=== PATIENT | female | born 2000 | race African-American/Black ===

== ENCOUNTER 2023-11-07 09:48 | Emergency (ER) | payer SELFPAY ==
[2023-11-07 10:04] VITALS: BP 115/68; PULSE 87; RESP 18; TEMP 36.7; O2SAT 94; BMI 22.7
[2023-11-07 10:26] LABS: Basophils Absolute Auto 0.1 10^3/uL (0.0-0.1); Basophils Percent Auto 0.8 % (0.2-2.0); Eosinophils Absolute Auto 0.2 10^3/uL (0.0-0.7); Eosinophils Percent Auto 2.6 % (0.9-7.0); Hematocrit 35.9 % (36.0-48.0); Hemoglobin 11.5 g/dL (12.0-16.0); Immature Granulocytes Abs Auto 0.02 10^3/uL (0.00-0.03); Immature Granulocytes Pct Auto 0.3 % (0.0-0.5); Lymphocytes Absolute Auto 2.1 10^3/uL (1.2-3.8); Lymphocytes Percent Auto 31.7 % (20.5-60.0); Mean Corpuscular Hemoglobin 27.7 pg (26.7-34.0); Mean Corpuscular Volume 86.5 fL (81.0-99.0); Mean Platelet Volume 8.7 fL (9.5-13.5); Monocytes Absolute Auto 0.6 10^3/uL (0.3-0.8); Monocytes Percent Auto 8.7 % (1.7-12.0); Neutrophils Absolute Auto 3.7 10^3/uL (1.4-6.5); Neutrophils Percent Auto 55.9 % (43.0-75.0); Platelet Count 321 10^3/uL (150-450); Red Blood Count 4.15 10^6/uL (4.20-5.40); Red Cell Distribution Width 14.2 % (11.0-15.0); White Blood Count 6.7 10^3/uL (4.0-11.0)
[2023-11-07 11:27] LABS: HCG Quantitative 1702 mIU/mL
--- NOTE | 2023-11-07 11:40 | US_ITS ---
The [address] [address] Patient Name: ELSI CAMEJO MRN: [id number] date: 2000 Sex: F Assigned Patient Location: ER Current Patient Location: ER Accession/Order Number: [id number] Exam Date: 11/07/2023 11:50 Report Date: 11/07/2023 12:28 At the request of: DEMAR ROONEY Procedure: US OB transvaginal EXAM: Ultrasound OB pelvis INDICATION: Positive test, vaginal bleeding COMPARISON: No prior obstetrical ultrasound available for comparison at the time this dictation. TECHNIQUE: Transvaginal Grayscale and color Doppler imaging of the pelvis. FINDINGS: No beta hCG value available at the time of this dictation. Anteverted uterus. Single intrauterine gestational sac with mean sac diameter 0.6 cm No yolk sac or pole. Closed cervix: 3.8 cm in length with trace simple cervical fluid. Right ovary: 3.1 x 2.8 x 3.1 cm. Corpus luteal cyst right ovary Left ovary: 3.1 x 1.3 x 1.2 cm Normal color Doppler to both ovaries. No free fluid in the pelvis. US/US OB transvaginal IMPRESSION: 1. Single intrauterine gestational sac. No pole or yolk sac. This may be secondary to early gestational age. Lack of beta hCG values limited evaluation. Recommend serial beta hCG evaluation with short interval follow-up. Electronically authenticated by: KARSTEN GARCIA Date: 11/07/2023 12:28
--- NOTE | 2023-11-07 12:45 | ED_ITS ---
HPI - General Chief complaint: Vaginal Bleeding Stated complaint: POSSIBLE MISCARRIAGE Time Seen by Provider: 11/07/23 10:00 Source: patient Mode of arrival: walk-in Limitations: no limitations History of Present Illness HPI Narrative: The patient presents with vaginal bleeding. She says that she took 5 tests at home, all of which were positive. She said that she developed bleeding yesterday and went to [facility] emergency department. They apparently did blood tests and a pelvic exam but no ultrasound. She does not know whether or not they did a quantitative hCG. She said that the bleeding returned this morning so she decided to come to our emergency department for evaluation. She is - Her first delivery was with Dr. Santana but her second was high risk and therefore she was referred to a physician in [place] for delivery. She actually has an appointment with them on November 10. She denies any abdominal pain, urinary symptoms. No flank pain or back pain. No syncope or dizziness. No chest pain or shortness of breath. The amount of bleeding is less than 1 pad. Related Data Home Medications ?Medication ?Instructions ?Recorded ?Confirmed No Known Home Medications 11/07/23 11/07/23 Allergies Allergy/AdvReac Type Severity Reaction Status Date / Time No Known Drug Allergies Allergy Verified 11/07/23 10:04 Exam Narrative Exam Narrative: Nurses notes and vital signs reviewed and patient is not hypoxic. Afebrile General: Well-appearing and in no apparent distress. Skin: Warm, dry, no pallor noted. No rash. Eye: Pupils are equal, round and EOMI. No scleral icterus. Ears, Nose, Mouth, and Throat: Oral mucosa is moist Cardiovascular: Regular Rate and Rhythm without murmur, gallop or rub. Respiratory: No accessory muscle use or respiratory distress. Lungs are clear to auscultation, no wheezing, rales or rhonchi Back: No midline thoracic or lumbar vertebral tenderness. Musculoskeletal: normal ROM, no calf or popliteal tenderness, no lower extremity edema/swelling GI: Abdomen is soft, non-distended. Normal bowel sounds. No masses appreciated. No tenderness to palpation. No rebound, guarding, or rigidity noted. Neurological: A&O x4. No cranial nerve dysfunction observed. No truncal ataxia. Moves all extremities. Sensation intact. Psychiatric: Cooperative and interactive. Normal mood and affect. Constitutional Vital Signs, click to edit/add: Last Vital Signs Temp 98.1 F 11/07/23 10:04 Pulse 87 11/07/23 10:04 Resp 18 11/07/23 10:04 BP 115/68 11/07/23 10:04 Pulse Ox 94 L 11/07/23 10:04 O2 Del Method Room Air 11/07/23 10:04 Course Vital Signs Vital signs: Vital Signs Temperature 98.1 F 11/07/23 10:04 Pulse Rate 87 11/07/23 10:04 Respiratory Rate 18 11/07/23 10:04 Blood Pressure 115/68 11/07/23 10:04 Pulse Oximetry 94 L 11/07/23 10:04 Oxygen Delivery Method Room Air 11/07/23 10:04 Temperature 98.1 F 11/07/23 10:04 Pulse Rate 87 11/07/23 10:04 Respiratory Rate 18 11/07/23 10:04 Blood Pressure 115/68 11/07/23 10:04 Pulse Oximetry 94 L 11/07/23 10:04 Oxygen Delivery Method Room Air 11/07/23 10:04 MDM - OB/Uterine Contractions MDM Narrative Medical decision making narrative: Quant was only 1700. Ultrasound was obtained and showed a single intrauterine gestational sac with no pole or yolk sac. This may be secondary to early gestational age. She will need to undergo repeat hCG and if this is not increasing at expected rate that she has likely had a miscarriage. Her OB is in [place] because her last was high risk. She will go back and see that individual. Lab Data Attestation: I reviewed the patient's lab results. Labs: Lab Results 11/07/23 Range/Units 10:20 WBC 6.7 (4.0-11.0) 10^3/uL RBC 4.15 L (4.20-5.40) 10^6/uL Hgb 11.5 L (12.0-16.0) g/dL Hct 35.9 L (36.0-48.0) % MCV 86.5 (81.0-99.0) fL MCH 27.7 (26.7-34.0) pg MCHC 32.0 (29.9-35.2) g/dL RDW 14.2 (11.0-15.0) % Plt Count 321 (150-450) 10^3/uL MPV 8.7 L (9.5-13.5) fL Neut % (Auto) 55.9 (43.0-75.0) % Lymph % (Auto) 31.7 (20.5-60.0) % [place] % (Auto) 8.7 (1.7-12.0) % Eos % (Auto) 2.6 (0.9-7.0) % Baso % (Auto) 0.8 (0.2-2.0) % Neut # (Auto) 3.7 (1.4-6.5) 10^3/uL Lymph # (Auto) 2.1 (1.2-3.8) 10^3/uL [place] # (Auto) 0.6 (0.3-0.8) 10^3/uL Eos # (Auto) 0.2 (0.0-0.7) 10^3/uL Baso # (Auto) 0.1 (0.0-0.1) 10^3/uL Abs Immat Gran (auto) 0.02 (0.00-0.03) 10^3/uL Imm/Tot Granulo (auto) 0.3 (0.0-0.5) % HCG, Quant 1702 mIU/mL Imaging Data us OB TV: Attestation: I have reviewed the pertinent imaging results. Radiologist's impression: ITS Impressions Transvaginal US 11/07/23 11:40 IMPRESSION: 1. Single intrauterine gestational sac. No pole or yolk sac. This may be secondary to early gestational age. Lack of beta hCG values limited evaluation. Recommend serial beta hCG evaluation with short interval follow-up. Electronically authenticated by: KARSTEN GARCIA Date: 11/07/2023 12:28 Discharge Plan Discharge Stand Alone Forms: Portal Instructions Chief Complaint: Vaginal Bleeding Clinical Impression: Threatened Patient Disposition: Home, Self-Care Time of Disposition Decision: 12:47 Prescriptions / Home Meds: No Action No Known Home Medications Print Language: Khmer Instructions: Threatened Miscarriage (ED) Referrals: Physician,Non-Staff, MD [Primary Care Provider] - 1 week Discharge Date/Time: 11/07/23 12:51
== END 2023-11-07 12:51 | disposition home or self-care (01) ==
PROVIDERS: Emergency Provider Emergency Medicine
DX: O20.0 Threatened abortion (principal); Z3A.00 Weeks of gestation of pregnancy not specified
CPT/HCPCS: 36415; 76817; 84702; 85025; 99284